=== PATIENT | male | born 1935 | race Caucasian/White ===

== ENCOUNTER → 2016-11-05 | Outpatient (CLI) | payer OTHER ==
[~2016-11-05] MED LIST: ASPIRIN81 M2 PO; BEANO1 EACH PO; CO-ENZYME Q-1010 MG PO; CRANBERRY400 MG PO; FISH OIL 1,0001 EAC5 PO; FLONASE 0.05%50 MCG NASAL; FOSAMAX 70 MG T70 M1 PO; KRILL OIL500 MG PO; PROBIOTIC1 EACH PO; VITAMIN B-12100 MC1 PO; VITAMIN D1000 UNI1 PO
== END ==
LOC: CAT 09:23 → EDSTATUS 09:40 → CAT 09:46
DX: N20.0 Calculus of kidney (principal); R63.4 Abnormal weight loss

== ENCOUNTER → 2016-12-30 | Outpatient (CLI) | payer OTHER ==
[~2016-12-30] VITALS: Ht 170.2 cm; Wt 63.5 kg
[~2016-12-30] MED LIST changes: +CRESTOR10 MG PO; +XANAX1 MG PO
--- NOTE | ~2016-12-30 | P ---
[facility] [place] [address] PROCEDURE REPORT Name: AZEB LOERA JR Room #: REG [facility]#: [id number] Admission: 12/30/16 Attend Phys: Jose Santana MD Discharge: Date of : 33 Report #: [id number] THIS REPORT FOR: //name// CC: Jose Hagan MD BRIEF HISTORY: The patient is an 81-year-old male with weight loss and dysphagia. PREOPERATIVE DIAGNOSES: Weight loss and dysphagia. POSTOPERATIVE DIAGNOSES: 1. Moderate diffuse gastritis. 2. Dysphagia. MEDICATIONS: Deep sedation with propofol per anesthesia. SPECIMENS: 1. Small-bowel biopsies to rule out celiac disease. 2. Gastric biopsies. ESTIMATED BLOOD LOSS: 3 mL. PROCEDURE: EGD with biopsy and Russell dilation. FINDINGS: Prior to propofol sedation, the procedure of upper endoscopy was discussed with the patient as well as potential risks, benefits, and complications. He indicates he understands and desires to proceed. With the patient in left lateral decubitus position, the [employer] video endoscope was inserted in the cervical esophagus under direct vision without difficulty. Examination of this organ through its entire length revealed normal esophageal mucosa down the squamocolumnar junction. The squamocolumnar junction was inspected and noted to be within normal limits. A hiatus hernia was not seen. No abnormalities were seen. The scope was advanced into the stomach, which was examined on end view as well as retroflexed views. There was a pattern of a diffuse gastritis. There was erythema, but no ulcers or erosions were seen. No bleeding lesions were seen. The pylorus, duodenal bulb, and postbulbar sweep were inspected and noted to be within normal limits. At that point, the scope was slowly withdrawn and careful circumferential views confirmed the above findings. The patient tolerated the procedure well. As we withdrew the scope, biopsies were obtained of the small-bowel to evaluate for celiac disease. We also obtained biopsies of the gastric mucosa. Scope was withdrawn. The patient tolerated the procedure well. The patient reports he has had difficulties swallowing . I did not see any [facility] [address] [place] [address] PROCEDURE REPORT Name: EPHRAIMAZEB DING Room #: REG [facility].#: [id number] Admission: 12/30/16 Attend Phys: Jose Santana MD Discharge: Date of : 34 Report #: [id number] obvious strictures or rings, but due to his complaints, he was dilated with a 50-St Lucian Russell dilator. No resistance was encountered. CONDITION OF THE PATIENT UPON DISCHARGE: Following procedure, the patient drowsy, aroused, conversant and will be discharged home when fully ambulatory. INSTRUCTIONS TO THE PATIENT AND FAMILY AT THE TIME OF DISCHARGE: I did not see an obvious lesion to explain the patient's weight loss. We will follow up on biopsies and make further recommendations. He should return to care of Dr. Yoshi Hagan. If he has further problems with dysphagia, he should return to see me as needed for dilation. If weight loss continue to be a problem, a CT abdomen and pelvis may be consideration if not previously done. By: [phone] Jose Santana MD /nt
--- NOTE | ~2016-12-30 | S ---
[facility] [address] [place] [address] SURGICAL PATH RPT PROCEDURE Name: AZEB LOERA JR Room #: REG [facility]#: [id number] Admission: 12/30/16 Date of : 33 Discharge: Report #: [id number] Path Case #: [id number] PATHOLOGY REPORT DRAFT COLLECTION DATE: 12/30/2016 RECEIVED DATE: 12/31/2016 SPECIMEN(S) RECEIVED: Jeremiah HallGastritis
== END | disposition home or self-care (01) ==
LOC: GI 08:13
DX: R13.10 Dysphagia, unspecified (principal); R63.4 Abnormal weight loss; K29.70 Gastritis, unspecified, without bleeding; Z87.891 Personal history of nicotine dependence; F41.9 Anxiety disorder, unspecified; E78.5 Hyperlipidemia, unspecified; Z85.46 Personal history of malignant neoplasm of prostate; K21.9 Gastro-esophageal reflux disease without esophagitis; Z90.49 Acquired absence of other specified parts of digestive tract; Z98.890 Other specified postprocedural states
CPT/HCPCS: 62110; 62900

== ENCOUNTER → 2017-03-07 | Outpatient (CLI) | payer OTHER | LOC: RAD 05:38 → SPEECH 11:21 → RAD 11:21 | DX: R13.12 Dysphagia, oropharyngeal phase (principal) ==

== ENCOUNTER → 2018-02-02 | Outpatient (CLI) | payer OTHER | LOC: NUC 09:51 | DX: Z13.820 Encounter for screening for osteoporosis (principal); M85.89 Other specified disorders of bone density and structure, multiple sites ==

== ENCOUNTER → 2019-01-26 | Outpatient (CLI) | payer OTHER ==
[~2019-01-26] VITALS: Ht 170.2 cm; Wt 65.8 kg
--- NOTE | 2019-01-29 17:07 | PATH ---
[facility] [place] [address] PATHOLOGY RPT PROCEDURE Name: AZEB LOERA Room #: REG [facility].#: [id number] Admission: 01/26/19 Date of : 33 Discharge: Report #: [id number] Path Case #: [id number] [facility] Accession Number: [id number] . 01 Material submitted: . PART A: colon - BX POLYP AT PROXIMAL ASCENDING COLON X3. Modifiers: proximal, ascending, X3 PART B: hepatic flexure - BX POLYP AT HEPATIC FLEXURE X2. Modifiers: X2 PART C: splenic flexure - BX POLYP AT SPLENIC FLEXURE . 01 Clinical history: . Black stools Colon polyps, diverticulosis . 02 Diagnosis: A. Polyp x3, proximal ascending colon, endoscopic biopsy: - Tubular adenoma identified in multiple fragments. - Negative for high-grade dysplasia. . B. Polyp x2, hepatic flexure, endoscopic biopsy: - Tubular adenoma; negative for high-grade dysplasia. - One fragment showing hyperplastic changes, negative for dysplasia. . C. Polyp, splenic flexure, endoscopic biopsy: - Tubular adenoma. - Negative for high-grade dysplasia. . (IUV:migel; 01/29/2019) MBR 01/29/2019 1307 Local . 02 Electronically signed: . Ashley Harding MD, Pathologist NPI- [id number] . 01 Gross description: . A. The specimen is received in formalin, labeled "Azeb Loera Jr, BX polyps at proximal ascending colon x3" and consists of 3 fragments of pink-martinez tissue measuring between 0.3 x 0.3 cm and 1.0 x 0.4 x 0.2 cm. The largest is inked and trisected. They are entirely submitted in A1. . B. The specimen is received in formalin, labeled "Azeb Loera Jr, BX polyp at hepatic flexure x2" and consists of 2 fragments of martinez tissue measuring 0.2 x 0.2 cm and 0.4 x 0.3 cm which are entirely submitted in B1. . C. The specimen is received in formalin, labeled "Azeb Loera Jr, BX polyp at splenic flexure" and consists of 3 fragments of pink-martinez tissue [address] [address] PATHOLOGY RPT PROCEDURE Name: AZEB LOERA JR Room #: REG [facility] Sophia#: [id number] Admission: 01/26/19 Date of : 34 Discharge: Report #: [id number] Path Case #: [id number] measuring between 0.2 x 0.2 cm and 0.4 x 0.3 cm which are entirely submitted in C1. (SDY; 01/26/2019) SYU/SYU 01/26/2019 1652 Local . 02 Pathologist provided ICD-10: D12.2, D12.3 . 02 CPT . 542241, 117846, 377559 Specimen Comment: A courtesy copy of this report has been sent to Specimen Comment: [phone], . Specimen Comment: Report sent to / DR GOOD Performed at: [address], [place] [id number] MD Leandro Jefferson MD Phone: [phone] Performed at: [address] [id number] MD Ashley Harding MD Phone: [phone]
--- NOTE | 2019-02-02 10:34 | P ---
[facility] [place] [address] PROCEDURE REPORT Name: AZEB LOERA Room #: REG [facility]#: [id number] Admission: 01/26/19 Attend Phys: Jose Santana MD Discharge: Date of : 34 Report #: [id number] THIS REPORT FOR: //name// CC: Jose Hagan DATE OF SERVICE: 01/26/2019 BRIEF HISTORY: The patient is an 83-year-old male with history of colon polyps. He also has had a longstanding history of IBS symptoms with abdominal cramping. He also has a component of constipation. He reports recent black stools, but also takes Pepto-Bismol for his IBS symptoms. He has no upper GI complaints and is not using any nonsteroidals. PREOPERATIVE DIAGNOSIS: High risk screening colonoscopy. POSTOPERATIVE DIAGNOSES: 1. Multiple colon polyps. 2. Moderate sigmoid diverticulosis coli. 3. Small internal hemorrhoids. MEDICATIONS: Deep sedation with propofol per anesthesia. SPECIMENS: 1. Proximal ascending colon polyps x 3. 2. Hepatic flexure polyps x 2. 3. Splenic flexure polyp. ESTIMATED BLOOD LOSS: 3 mL. PROCEDURE: Colonoscopy to cecum and terminal ileum with snare polypectomy and biopsy. FINDINGS: Prior to propofol sedation, procedure of colonoscopy discussed with the patient as well potential risks and its complications. He indicates he understands and desires to proceed. DESCRIPTION OF PROCEDURE: With the patient in left lateral decubitus position, digital examination was completed, which revealed no abnormalities. Subsequently, the Olympus video colonoscope was introduced in the rectum, advanced under direct vision to the cecum. Done with minimal difficulty. The cecum was identified by the ileocecal valve and the appendiceal orifice. I was able to visualize the distal segment of terminal ileum, which was inspected and noted to be unremarkable. At that point, the scope was slowly withdrawn and careful circumferential views were obtained. Upon slow withdrawal of the scope, [facility] [address] [place] [address] PROCEDURE REPORT Name: EPHRAIMAZEB DING Room #: REG [facility].#: [id number] Admission: 01/26/19 Attend Phys: Jose Santana MD Discharge: Date of : 33 Report #: [id number] there were some limitations of prep in the proximal colon with some adherent liquidy material. However, we were able to irrigate and wash most of this material away. Overall, reasonably good prep was obtained in the proximal colon. As we withdrew the scope, he was found to have 3 polyps in the proximal ascending colon, 2 polyps were diminutive polyps removed with biopsy forceps. Another was a little large in the range of 4-5 mm and removed by cold snare polypectomy. At the hepatic flexure, two diminutive polyps removed with biopsy forceps. In the splenic flexure, diminutive polyp was removed with forceps. The colon mucosa was otherwise unremarkable. As we continued withdrawal of the scope, he was not found to have any additional polyps, but he was noted to have moderately severe sigmoid diverticular disease without endoscopic evidence of diverticulitis. Scope was withdrawn in the rectum, no abnormalities were seen. Upon retroflexion, no abnormalities were seen. Scope was withdrawn. The patient tolerated the procedure well. CONDITION OF THE PATIENT UPON DISCHARGE: Following procedure, the patient drowsy, aroused, conversant and will be discharged home when fully ambulatory. INSTRUCTIONS TO THE PATIENT AND FAMILY AT THE TIME OF DISCHARGE: We will follow up on the path of the polyps. However, at this point in life, he is not likely to gain significant benefit from routine high risk screening colonoscopy. However, if he should develop any specific problems or symptoms, colonoscopy could be entertained at that time. He has had some IBS symptoms of cramping abdominal pain and some constipation. I would avoid anticholinergics on this patient at this age. Suggest high fiber diet. Also, he could use MiraLax. If symptoms persist, we could use one of the newer prescription medications for IBS and constipation; although, hopefully that will be necessary. If symptoms persist, he is to return to see me in followup in the office. <ELECTRONICALLY SIGNED> By: Jose Santana MD 02/02/19 1034 [id number] Jose Santana MD /nt
== END ==
LOC: GI 08:47
DX: K59.00 Constipation, unspecified (principal); D12.2 Benign neoplasm of ascending colon; D12.3 Benign neoplasm of transverse colon; K57.30 Diverticulosis of large intestine without perforation or abscess without bleeding; K64.8 Other hemorrhoids; E78.5 Hyperlipidemia, unspecified; F41.9 Anxiety disorder, unspecified; Z87.442 Personal history of urinary calculi; Z86.010 Personal history of colon polyps; Z90.49 Acquired absence of other specified parts of digestive tract; Z98.41 Cataract extraction status, right eye; Z98.42 Cataract extraction status, left eye; Z98.890 Other specified postprocedural states; Z88.8 Allergy status to other drugs, medicaments and biological substances; Z79.899 Other long term (current) drug therapy
CPT/HCPCS: 62110; 62900

== ENCOUNTER → 2019-03-06 | Outpatient (CLI) | payer OTHER | LOC: CAT 11:37 | DX: K57.30 Diverticulosis of large intestine without perforation or abscess without bleeding (principal); Z90.49 Acquired absence of other specified parts of digestive tract ==

== ENCOUNTER 2019-06-05 16:15 | Emergency (ER) | payer OTHER ==
[~2019-06-05] VITALS: Ht 170.2 cm; Wt 65.3 kg
[2019-06-05 19:10] VITALS: BP 137/86
[2019-06-06] MEDS ORDERED: PANTOPRAZOLE SO40 M1 PO (02:50)
== END 2019-06-05 19:10 | disposition home or self-care (01) ==
LOC: ER 16:15
DX: M25.552 Pain in left hip (principal); E78.5 Hyperlipidemia, unspecified; F41.9 Anxiety disorder, unspecified; Z88.1 Allergy status to other antibiotic agents